=== PATIENT | female | born 1995 | race Caucasian/White ===

== ENCOUNTER 2018-07-15 14:56 | Emergency (ER) | payer BC, SELFPAY ==
[2018-07-15 15:05] VITALS: BP 122/79; PULSE 83; RESP 18; TEMP 37; O2SAT 98
--- NOTE | 2018-07-15 15:35 | ED.GENADUL_ITS ---
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 Call for an appointment. Return to ER for any worsening or new concerning symptoms. Referrals: [facility] [place] [Provider Group] Medical Decision Making 16:29 --22-year-old female here with pelvic and vaginal pain as well as brown vaginal discharge 5 days after IUD placement. No fever. Abdominal exam benign. I called and spoke with Dr. Goldstein, shellfish shucker on-call, who recommends that I remove IUD by pulling on string with forcep. Pelvic exam performed with female nurse Megha present. Patient had thick brown vaginal discharge on exam. I was able to easily identify IUD string. Gentle traction was placed with a ring forcep and IUD removed easily. GC chlamydia from cervix and vaginal pathology specimen sent. CBC pending. 16:45 -- Spoke with Dr. Alonzo again and discussed findings on exam and labs. He recommends no additional intervention needed, no antibiotics needed, does feel she should be seen in clinic in follow-up early this week. HPI General Mode of arrival: ambulatory . Date/Time Provider Initiated Documentation: 07/15/18 15:16 . Limitations to Documentation: no limitations . Information obtained by: patient . HPI Narrative: 22-year-old female presents with pelvic pain and brown vaginal discharge over the past 5 days since IUD placement. Pain is moderate to severe. Feels sharp. Localized to suprapubic to vagina. She is been taking Tylenol and ibuprofen which helps minimally. No associated dysuria. No fever. No abdominal pain. Of note, patient had complication with prior IUD and it had to be removed a couple years ago. No history of STDs. 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 KHAI: 3 Review of Systems Review of Systems All systems reviewed & are unremarkable except as noted in HPI and below Constitutional Denies fever(s) Genitourinary Reports as per HPI and Reports pelvic pain PFSH Social History Smoking/Tobacco Use Status: Never Alcohol Intake: never Do you feel safe at home: Yes Do you feel safe in your relationship?: Yes Course Vital Signs Temperature 37.0 C 07/15/18 15:05 Pulse 83 07/15/18 15:05 Respiratory Rate 18 07/15/18 15:05 Blood Pressure 122/79 07/15/18 15:05 Pulse Oximetry 98 07/15/18 15:05 Temperature 37.0 C 07/15/18 15:05 Temperature Source Temporal Artery Scan 07/15/18 15:05 Pulse 83 07/15/18 15:05 Respiratory Rate 18 07/15/18 15:05 Respiratory Effort 07/15/18 15:12 Blood Pressure 122/79 07/15/18 15:05 Blood Pressure Position Sitting 07/15/18 15:05 Pulse Oximetry 98 07/15/18 15:05 Oxygen Delivery Method Room Air 07/15/18 15:05 Oxygen Flow Rate 0 07/15/18 15:05 Pain Level 8 07/15/18 15:13
[2018-07-15 16:19] LABS: Abs Immature Grans 0.02 k/cumm (0.0-0.09); Absolute Basophil Count 0.02 k/cumm (0.0-0.2); Absolute Eosinophil Count 0.05 k/cumm (0.0-0.7); Absolute Lymphocyte Count 3.47 k/cumm (1.2-3.4); Absolute Monocyte Count 0.61 k/cumm (0.11-0.7); Absolute Neutrophil Count 6.29 k/cumm (1.2-6.7); Basophils % 0.2; Eosinophils % 0.5; HCT 43.4 % (36.0-46.0); HGB 14.5 g/dL (12.0-15.5); Immature Grans % 0.2; Lymphocytes % 33.2; Mean Corp. HGB Concentration 33.4 g/dL (32.0-36.0); Mean Corpuscular Hemoglobin 29.4 pg (27.0-33.0); Mean Platelet Volume 11.1 fL (8.0-11.0); Monocytes % 5.8; Neutrophils % 60.1; Platelet Count 216 x1000/uL (130-400); RBC 4.93 m/cumm (4.00-5.20); RBC Distribution Width 11.8 % (11.7-14.6); White Blood Cell Count 10.46 k/cumm (4.4-10.8)
[2018-07-15 16:53] VITALS: BP 122/79; PULSE 83; RESP 18; TEMP 37; O2SAT 98
[2018-07-15 17:04] LABS: Bilirubin Negative (Negative); Blood Large (Negative); Clarity Clear; Glucose Negative (Negative); Ketones 15 mg/dL (Negative); Leukocyte Esterase Negative (Negative); Nitrite Negative (Negative); Specific Gravity >= 1.030 (1.005-1.025); Urobilinogen 0.2 EU/dL (Up TO 0.2); pH 5.5 (5-8)
[2018-07-15 17:16] LABS: Bacteria Moderate HPF (Negative); C & S Indicated? No/Sq. Contamination; Casts Negative LPF (Negative); Crystals Negative HPF (Negative); Epithelial Cells Many HPF (Negative); Mucus Negative (Negative)
--- NOTE | 2018-07-15 18:34 | NUR.NOTE ---
Nursing Note: Referral faxed to [facility] for follow up. Dr. Alonzo aware of this patient. Mary Padgett.
[2018-07-17 13:20] LABS: Chlamydia Result Negative; GC Result Negative; Specimen Description CERVIX
== END 2018-07-15 16:55 | disposition home or self-care (01) ==
PROVIDERS: Emergency Provider Student in an Organized Health Care Education/Training Program; PCP Nurse Practitioner
DX: R10.2 Pelvic and perineal pain (principal); T83.39XA Other mechanical complication of intrauterine contraceptive device, initial encounter
CPT/HCPCS: 36415; 87491; 87591; 99283; 81003; 81015; 85025; 87480; 87510; 87660

== ENCOUNTER 2024-08-03 16:42 | Outpatient (REF) | payer OTHER, SELFPAY ==
[2024-08-03 16:56] LABS: Abs Immature Grans 0.03 10^3/uL (0.0-0.06); Absolute Basophil Count 0.04 10^3/uL (0.0-0.2); Absolute Eosinophil Count 0.06 10^3/uL (0.0-0.7); Absolute Lymphocyte Count 2.55 10^3/uL (1.2-3.4); Absolute Monocyte Count 0.47 10^3/uL (0.1-0.8); Absolute Neutrophil Count 4.81 10^3/uL (1.2-6.7); Basophils % 0.5 %; Eosinophils % 0.8 %; HCT 47.2 % (36.0-46.0); HGB 15.5 g/dL (11.2-15.7); Immature Grans % 0.4 %; MCH 29.9 pg (27.0-33.0); MCHC 32.8 % (32.0-36.0); MCV 91 fL (80-95); MPV 11.7 fL (8.0-11.0); Monocytes % 5.9 %; Neutrophils % 60.4 %; Platelet Count 226 10^3/uL (130-400); RBC 5.19 10^6/uL (3.93-5.22); RDW-SD 39.8 fL; WBC 7.96 10^3/uL (4.4-10.8)
[2024-08-03 17:07] LABS: ALT 105 U/L (14-59); AST 38 U/L (15-37); Albumin 4.5 g/dL (3.4-5.0); Alkaline Phosphatase 89 U/L (46-116); Anion Gap 6.6 mmol/L (3-11); BUN 13 mg/dL (7-18); Bilirubin, Total 0.4 mg/dL (0.2-1.0); CO2 28.4 mmol/L (21.0-32.0); CREATININE 0.8 mg/dL (0.55-1.02); Calcium 9.7 mg/dL (8.5-10.1); Chloride 105 mmol/L (98-107); Estimated GFR 102.22 (mL/min/1.73m2); Glucose 96 mg/dL (74-106); Potassium 4.3 mmol/L (3.5-5.1); Sodium 140 mmol/L (136-145); Total Protein 7.5 g/dL (6.4-8.2)
[2024-08-03 17:53] LABS: Vitamin B12 1254 pg/mL (193-986)
[2024-08-05 12:18] LABS: C3 Complement 173 mg/dL (81-157); C4 Complement 31 mg/dL (13-39)
== END 2024-08-03 16:43 | disposition home or self-care (01) ==
LOC: LBN 16:42
PROVIDERS: PCP Nurse Practitioner Family; Visit Provider Physician Assistant Medical
DX: M35.1 Other overlap syndromes (principal)
CPT/HCPCS: 80053; 82607; 85025; 86160; 86225

== ENCOUNTER 2024-12-30 11:00 | Outpatient (REF) | payer OTHER, SELFPAY ==
[2025-01-01 12:58] LABS: Bacterial Vaginosis (BV) Negative (Negative); Candida glabrata Negative (Negative); Candida species group Negative (Negative); Chlamydia Result Negative (Negative); GC Result Negative (Negative)
== END 2024-12-30 11:01 | disposition home or self-care (01) ==
LOC: LBN 11:00
PROVIDERS: PCP Nurse Practitioner Family; Visit Provider Nurse Practitioner Family
DX: A64 Unspecified sexually transmitted disease (principal); R10.2 Pelvic and perineal pain
CPT/HCPCS: 81513; 87481; 87491; 87591; 87661; 87480; 87510; 87660

== ENCOUNTER 2025-03-14 00:38 | Outpatient (CLI) | payer OTHER, SELFPAY ==
[2025-03-17 11:17] LABS: Rubella IgG Ab (UVM) Positive (See Note)
== END 2025-03-14 00:39 | disposition home or self-care (01) ==
LOC: LBO 00:39
PROVIDERS: PCP Nurse Practitioner Family; Visit Provider Nurse Practitioner Family
DX: Z01.84 Encounter for antibody response examination (principal)
CPT/HCPCS: 36415; 86787; 86735; 86762; 86765